=== PATIENT | male | born 1980 | race Caucasian/White ===

== ENCOUNTER 2019-05-17 10:44 | Outpatient (CLI) | payer OTHER ==
--- NOTE | 2019-05-17 11:09 | RAD ---
XR Chest Pa Lat STANDARD HISTORY: Left upper quadrant abdominal pain. COMPARISON: None FINDINGS: The heart size is normal. The lungs are well expanded without focal areas of consolidation, pneumothorax or pleural effusions. IMPRESSION: No radiographic evidence of acute cardiopulmonary process.
== END 2019-05-17 10:45 | disposition home or self-care (01) ==
LOC: BICRAD 10:44
PROVIDERS: ATTEND Physician Assistant Medical
DX: K51.90 Ulcerative colitis, unspecified, without complications (principal); R10.12 Left upper quadrant pain; M54.6 Pain in thoracic spine; Z93.2 Ileostomy status
CPT/HCPCS: 71046

== ENCOUNTER 2019-06-01 07:51 | Outpatient (CLI) | payer OTHER ==
--- NOTE | 2019-06-01 09:14 | ULT ---
ABDOMINAL ULTRASOUND: HISTORY: Generalized abdominal pain. History of colon resection. FINDINGS: Real-time imaging of the upper abdomen demonstrates a normal appearing gallbladder. The common duct i s 4 mm. The liver measures 15.5 cm in length. No focal findings. The spleen is 9.1 cm. The pancreas is partially obscured. The abdominal aorta and IVC regions appear unremarkable. The right and left kidneys are within normal limits in size and not obstructed. IMPRESSION: Unremarkable abdomen ultrasound. POS: [facility]
== END 2019-06-01 07:52 | disposition home or self-care (01) ==
LOC: BICULT 07:51
PROVIDERS: ATTEND Internal Medicine Gastroenterology
DX: R10.9 Unspecified abdominal pain (principal)
CPT/HCPCS: 93975

== ENCOUNTER 2020-02-18 10:17 | Outpatient (CLI) | payer OTHER ==
--- NOTE | 2020-02-18 13:59 | CT ---
CT abdomen and pelvis with IV and oral contrast HISTORY: Abdominal pain. Left abdominal fullness. COMPARISON: 06/01/2008. FINDINGS: The lung bases are clear. Solid organs are intact. A 1.2 cm cyst is noted within the anteri or cortex of the right kidney. Lobular parapelvic cysts of the left kidney are stable. No free air or free fluid. Postoperative changes consistent with colectomy. Right lower quadrant ileostomy without evidence of c omplication. No evidence of bowel obstruction or inflammation. 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 IMPRESSION : Status post colectomy. No evidence of complication or other acute abnormality.
== END 2020-02-18 10:18 | disposition home or self-care (01) ==
LOC: SCSCT 10:17
PROVIDERS: ATTEND Internal Medicine Gastroenterology
DX: R10.9 Unspecified abdominal pain (principal); Z93.2 Ileostomy status; Z90.49 Acquired absence of other specified parts of digestive tract
CPT/HCPCS: 74177